=== PATIENT | female | born 1950 | race Caucasian/White ===

== ENCOUNTER 2016-12-15 13:25 | Emergency (ER) | payer MEDICARE, OTHER ==
[~2016-12-15] VITALS: Wt 80.2 kg
[2016-12-15] MEDS ORDERED: ONDANSETRON (ODT) 4 MG TAB ODT STA (14:21)
[2016-12-15] MEDS ORDERED: KETOROLAC 30 MG INJ IM STA (14:21)
[2016-12-15] MEDS ORDERED: HYDR-906 PO (14:25)
[2016-12-15] MEDS ORDERED: HYDROCODONE/APAP (5/325) TAB PO ONE (14:30)
--- NOTE | 2016-12-15 14:52 | ERD ---
ER Documentation Chief Complaint Date/Time DATE: 12/15/16 TIME: 14:47 Chief Complaint LEFT SHOULDER PAIN FOR THE PAST 5 DAYS. GETTING WORSE TODAY HPI This is a 66-year-old female with a history of diabetes type 2, hypertension, high cholesterol, anxiety presenting to the emergency department complaining of acute on chronic left shoulder pain for the past year that has been worsening for one week. Patient has a partial rotator cuff tear, spinal stenosis with disc herniation and radiculopathy. Patient has been following up by an orthopedist who is going to do blood work on her tomorrow and plan for surgery, there is no date settled yet. Patient has tried Advil 6 hours prior to being seen without any relief. Patient admits to having restricted range of motion. She denies any chest pain or shortness of breath. ROS All systems reviewed and are negative except as per history of present illness. Medications Home Meds Active Scripts Hydrocodone/Acetaminophen ([place] 5-325 Tablet) 1 Each Tablet, 1 EACH PO Q4 Y for PAIN, #20 TAB Prov:FIDEL PATEL PA-C 12/15/16 Allergies Allergies: Coded Allergies: Cephalosporins (Verified Allergy, Intermediate, 12/15/16) PMhx/Soc History of Surgery: No Anesthesia Reaction: No Hx Neurological Disorder: No Hx Respiratory Disorders: No Hx Cardiac Disorders: No Hx Psychiatric Problems: No Hx Miscellaneous Medical Probl: Yes (HTN, Cholesterol.) Hx Alcohol Use: No Hx Substance Use: No Hx Tobacco Use: No Physical Exam Vitals Vital Signs Date Time Temp Pulse Resp B/P Pulse Ox O2 Delivery O2 Flow Rate FiO2 12/15/16 13:35 98.5 79 21 153/73 99 Physical Exam General: WD/WN, in no apparent distress, non-toxic appearing HENT: NC/AT Eyes: Conjunctiva normal Neck: Supple, TTP on spine midline Pulm: Clear to auscultation, normal labored breathing; no wheezing/rales/ rhonchi heard CV: Good capillary refill, RRR GI: Non-distended, no guarding Back: No masses Ext: Tenderness to palpation over the left shoulder with restricted range of motion due to paub Neuro: Moves on all fours Skin: intact Psych: Normal mood Results 24 hrs Current Medications Medications (Trade) Dose Ordered Sig/Guerita Route PRN Reason Start Time Stop Time Status Last Admin Dose Admin Ketorolac Tromethamine (Toradol) 30 mg ONCE STAT IM 12/15/16 14:21 12/15/16 14:22 DC 12/15/16 14:36 Acetaminophen/ Hydrocodone Bitart ([place] (5/325)) 2 tab ONCE ONCE PO 12/15/16 14:30 12/15/16 14:31 DC 12/15/16 14:36 Ondansetron HCl (Zofran Odt) 4 mg ONCE STAT ODT 12/15/16 14:21 12/15/16 14:22 DC 12/15/16 14:36 Procedures/MDM This is a 66-year-old female with a history of diabetes type 2, hypertension, high cholesterol, anxiety presenting to the emergency department complaining of acute on chronic left shoulder pain for the past year that has been worsening for one week. Patient has a partial rotator cuff tear, spinal stenosis with disc herniation and radiculopathy. Patient has been following up by an orthopedist who is going to do blood work on her tomorrow and plan for surgery, there is no date settled yet. Patient presents today for pain relief. In the ED patient was given Toradol injection and [place]. She was placed in the ED sling. Patient is going to take blood work with her orthopedist tomorrow and there can plan for surgery. Patient presented with her records and MRI findings, I have reviewed her documents. Patient was given prescription for [place]. Discussed to follow-up with an orthopedist. Discussed return the ER for any worsening symptoms. She understands and agrees with Departure Diagnosis: Primary Impression: Spinal stenosis Spinal region: unspecified Qualified Code: M48.00 - Spinal stenosis, unspecified spinal region Additional Impressions: Rotator cuff tear Rotator cuff tear extent: unspecified tear extent Laterality: left Qualified Code: M75.102 - Tear of left rotator cuff, unspecified tear extent Cervical disc herniation Condition: Fair Patient Instructions: Understanding Rotator Cuff Injuries, Radiculopathy, Cervical, Rotator Cuff Tear Referrals: your doctor MANDA HALEY V Additional Instructions: FOLLOW UP WITH YOUR PRIMARY CARE PHYSICIAN TOMORROW.Return to this facility if you are not improving as expected. Take all medicines as directed. Return to this facility if you are not improving as expected. You have been given a medicine which may cause drowsiness.DO NOT DRIVE OR OPERATE DANGEROUS MACHINERY while taking this medicine! SPECIALIST: YOU HAVE A MEDICAL CONDITION WHICH REQUIRES YOU TO SEE A SPECIALIST WITHIN THE NEXT 1-2 DAYS. PLEASE FOLLOW UP WITH YOUR PRIMARY PHYSICIAN FOR REFFERAL.IF YOU DO NOT HAVE A PRIMARY CARE PHYSICIAN AND/OR YOU CAN NOT AFFORD TO SEE A PHYSICIAN THE FOLLOWING RESOURCES HAVE BEEN SUPPLIED TO YOU. IT IS YOUR RESPONSIBILITY TO BE SEEN BY THE SPECIALIST FIDEL PATEL PA-C Dec 15, 2016 14:52
== END 2016-12-15 15:40 | disposition home or self-care (01) ==
LOC: FTE 13:25
DX: M48.00 Spinal stenosis, site unspecified (principal); M75.102 Unspecified rotator cuff tear or rupture of left shoulder, not specified as traumatic; M50.20 Other cervical disc displacement, unspecified cervical region; I10 Essential (primary) hypertension; E11.9 Type 2 diabetes mellitus without complications
CPT/HCPCS: 96372; 99284; J1885

== ENCOUNTER 2019-06-06 22:08 | Emergency (ER) | payer MEDICARE, OTHER ==
[~2019-06-06] VITALS: Ht 162.6 cm; Wt 74.3 kg
[~2019-06-06 22:08] MED LIST: HYDR-4011 PO
[2019-06-06 22:11] VITALS: PULSE 69; RESP 18; Ht 162.6 cm; Wt 74.3 kg
[2019-06-07 01:42] VITALS: BP 138/82
== END 2019-06-07 01:44 | disposition left against medical advice (07) ==
LOC: E/R 22:08
DX: Z53.21 Procedure and treatment not carried out due to patient leaving prior to being seen by health care provider (principal)